=== PATIENT | male | born 1965 | race Caucasian/White ===

== ENCOUNTER 2016-05-14 15:15 | Emergency (ER) | payer MEDICARE, OTHER ==
--- NOTE | 2016-05-14 15:31 | ED.REPORT ---
HPI-Chest Pain 40 and Over Date of Service May 14, 2016 ED Provider: Mike Garcia DO 50 year old male with a history of costochondritis, CRPS of the extremities, anxiety, and PTSD presents to the ER accompanied by his and daughters complaining of chest pain rated 9/10 in severity that radiates into his left arm , and shortness of breath onset around 14:50 today. Chest pain is described as "being struck in the chest with a sledgehammer". Associated symptoms include bilateral upper extremity pain that feels as though they are "being crushed off ", bilateral lower extremity pain, and "cold, burning" sensation in his feet. Symptoms are different to prior episodes of costochondritis. Nursing Notes Stated Complaint: CHEST PAIN, LEFT ARM PAIN, SHORTNESS OF BREATH Nursing Notes Reviewed: Yes Allergies: Coded Allergies: ibuprofen (Verified Allergy, Unknown, 05/14/16) tramadol (Verified Allergy, Unknown, 05/14/16) General Time Seen by MD: 15:30 Chief Complaint Chest pain Hx Obtained From: Patient Arrived By: Walk-in Sudden in Onset?: Yes Onset Occurred: 1 - 4 hours ago (14:50) Symptom Duration: Since onset Location: : Substernal Quality: Painful Radiation: : Arm left Migration/Movement: Reports: None Severity: Current: Moderate Severity: Maximum: Moderate Associated with: Reports: Shortness of Breath Context Related History: Reports: Anxiety disorder, Costochondritis Past Medical History Past Medical History Costochondritis CRPS [place] Restless leg syndrome Anxiety PTSD Denies: Asthma, COPD Past Surgical History Sternoplasty as a child Smoking History Unknown if Ever Smoker Social History Other Social History: Good social support, Ambulatory Status Independent Review of Systems Constitutional: Denies: Chills, Fever Respiratory: Reports: Shortness of breath, Denies: Non-productive cough Cardiovascular: Reports: Chest pain GI: Denies: Abdominal pain, Nausea, Vomiting Musculoskeletal: Reports: Extremity pain (Arms and Legs, bilaterally), Denies: Back pain, Joint pain, Neck pain Skin: Denies Diaphoresis Neurologic: Denies: Headache Complete sys rev & neg: except as marked. Physical Exam Initial Vital Signs Initial VS: Reviewed Head / Eyes: Atraumatic, Normocephalic Neck: Supple, Non-tender, Full range of motion Extremities: Vascular intact, Neuro intact, No swelling, No tenderness Skin: Warm, Dry, No cyanosis Neurologic: Alert, Oriented, Nonfocal General/Constitutional: Awake, Alert, Well developed, Well nourished Appearance / Presentation: Positive: In pain, Uncomfortable Respiratory / Chest: Breath sounds NL, Breath sounds = bilat, No respiratory distress, No rales, No rhonchi, No wheezing, No stridor, No chest tenderness Horizontal scar beneath the breast Cardiovascular: Heart rate NL, Regular rhythm, Heart sounds NL, No murmurs, Peripheral circulation NL, Pulses = bilaterally, No gross BP differential Abdomen: Soft, Non-tender, No guarding, No rebound, No distention Interpretation & Diagnostics Lab Results Interpretation Test 05/14/16 15:50 White Blood Count 7.5th/mm3 (3.8-10.1) Red Blood Count 5.06mil/mm3 (4.40-5.80) Hemoglobin 16.0g/dL (13.8-17.2) Hematocrit 45.5% (41.0-50.0) Mean Corpuscular Volume 89.9fL (81-100) Mean Corpuscular Hemoglobin 31.6pg (27.0-35.0) Mean Corpuscular Hemoglobin Concent 35.2% (32.0-37.0) Red Cell Distribution Width 11.7% (12.3-15.4) Platelet Count 221bil/L (150-400) Neutrophils (%) (Auto) 50.2% (40-74) Lymphocytes (%) (Auto) 37.5% (14-46) Monocytes (%) (Auto) 9.3% (4-12) Eosinophils (%) (Auto) 2.5% (0-5) Basophils (%) (Auto) 0.4% (0-3) Prothrombin Time 9.6sec (8.1-12.5) Prothromb Time International Ratio 0.90ratio Activated Partial Thromboplast Time 28.0sec (22.8-33.0) Sodium Level 136mEq/L (134-144) Potassium Level 3.8mEq/L (3.5-5.2) Chloride Level 98mEq/L (97-108) Carbon Dioxide Level 24mmol/L (18-29) Blood Urea Nitrogen 14mg/dL (6-24) Creatinine 0.81mg/dL (0.76-1.27) Estimat Glomerular Filtration Rate 108mL/min (>59) Glucose Level 149mg/dL (60-99) Calcium Level 9.7mg/dL (8.5-10.1) Magnesium Level 2.2mg/dL (1.6-2.6) Total Bilirubin 0.6mg/dL (0.0-1.2) Aspartate Amino Transf (AST/SGOT) 21U/L (0-50) Alanine Aminotransferase (ALT/SGPT) 22U/L (0-44) Alkaline Phosphatase 67U/L (25-150) Troponin T < 0.010ug/L (0.0-0.011) Total Protein 7.3g/dL (6.4-8.4) Albumin 4.5g/dL (3.4-5.0) ECG Interpretation ECG Interpretation: Interference with baseline, difficult to interpret Sinus rhythm. No obvious ST changes visible. Leads adjusted multiple times but unable to obtain better picture. Time: 15:45 Interpreted by: ED physician X-Ray Chest Interpretation Chest Xray Interpretation: IMPRESSION: Focal opacity in the right lower lobe which could represent atelectasis or pneumonia. Recommend followup imaging to resolution to exclude underlying mass. Dictated by: Linda Carr MD, PhD on 05/14/2016 at 17:01 Approved by: Linda Carr MD, PhD on 05/14/2016 at 17:02 View: AP & lat Interpretation / Wet Read by: Interpret - Radiologist Re-Eval/Medical Decision Med Decision/Clinical Course 50-year-old male with a history of CPR S, recurrent chest pain related to "cartilage inflammation from a surgery to repair pectus excavatum when he was a child", and PTSD presents with his usual chest pain and quite a bit of anxiety from him and his family. Workup was conducted and revealed no acute coronary syndrome which was quite reassuring to the patient and his family. I have recommended that if these sensations persist it would be reasonable for him to have a stress test and follow-up with his primary care provider to evaluate this further. His chest x-ray was somewhat abnormal and I discussed this with the patient, but I suspect that the findings are consistent with the postsurgical changes in his chest and that we just have no previous film for comparison here. I asked him to follow up and discuss this with his primary care provider also. Source of Hx: Old records Time of Eval: 18:19 Patient Status: Condition improved, Pain improved Re-Evaluation/Progress Note: Chest pain is resolved. Extremity pain persists, but is at baseline per patient. Discussed lab and radiology results and plan to discharge. Patient is amenable to the plan. Return precautions given. All other questions addressed. Counseled Regarding: Diagnosis, Lab results, Need for follow-up, When/why to return to ED Discharge & Departure Primary Impression: Chest pain Chest pain type: unspecified Qualified Code: R07.9 - Chest pain, unspecified Disposition: Home Discharge Condition All VS Reviewed: Yes Condition: Stable Patient Instructions: Chest Pain (ED) Additional Instructions: Your workup today was reassuring. I do not believe that there is any dangerous cause for your symptoms at this time. Your labs and x-ray results were all normal. Take your pain medications as prescribed. Do not consume alcohol or drive while taking narcotic pain medication. Follow up with your primary care provider this week. Discuss having a stress test with your primary care provider. Return to the ER if you develop any worsening chest pain, radiation of pain into your arms, shoulders or neck, nausea, shortness of breath, sweating , or other concerning symptoms. Referrals: Damir Rodriguez MD (PCP) Jose Ramon Attestation Portions of this note were transcribed by Devonte Shane. I, Dr. Garcia personally performed the history, physical exam and medical decision-making; I reviewed and confirmed the accuracy of the information in the transcribed note. Signed by: Jose Ramon Shaikh, 05/14/2016 and 18:43 copies to: Damir Rodriguez MD, Gary R DO May 14, 2016 15:30 DEVONTE SHANE May 14, 2016 15:34
[2016-05-14 15:35] VITALS: BP 143/90; PULSE 86; RESP 20; O2SAT 96
[2016-05-14 15:53] LABS: BASOPHILS % (AUTO) 0.4 % (0-3); EOSINOPHILS % (AUTO) 2.5 % (0-5); MONOCYTES % (AUTO) 9.3 % (4-12); Mean Corpuscular Hemoglobin 31.6 pg (27.0-35.0); Mean Corpuscular Volume 89.9 fL (81-100); NEUTROPHILS % (AUTO) 50.2 % (40-74); Platelet Count 221 bil/L (150-400)
[2016-05-14 16:11] LABS: INR 0.9 ratio
[2016-05-14 16:27] LABS: TROPONIN T < 0.010 ug/L (0.0-0.011)
[2016-05-14 16:29] LABS: Magnesium 2.2 mg/dL (1.6-2.6)
--- NOTE | 2016-05-14 17:04 | DRSVH ---
PROCEDURE: X-RAY CHEST, TWO VIEWS ([id number]) INDICATIONS: chest pain TECHNIQUE: 2 views of the chest were acquired. COMPARISON: None. FINDINGS: Surgical changes and devices: Cervical spine neurostimulator Lungs and pleura: No pleural effusions or pneumothorax. Focal opacity noted in the mesial anterior a spect of the right lower lobe. Mediastinum: Mediastinal contours are normal. Heart size is normal. Bones and chest wall: Pectus excavatum deformity is noted. No suspicious bony abnormalities. Soft tissues appear unremarkable. IMPRESSION: Focal opacity in the right lower lobe which could represent atelectasis or pneumonia. R ecommend followup imaging to resolution to exclude underlying mass. Dictated by: Linda Carr MD, PhD on 05/14/2016 at 17:01 Approved by: Linda Carr MD, PhD on 05/14/2016 at 17:02
[2016-05-14 19:06] VITALS: BP 144/87; PULSE 81; RESP 16; O2SAT 97
== END 2016-05-14 19:07 | disposition home or self-care (01) ==
LOC: SED 15:15
DX: R07.9 Chest pain, unspecified (principal); R06.02 Shortness of breath; Z88.6 Allergy status to analgesic agent; Z88.8 Allergy status to other drugs, medicaments and biological substances; I25.2 Old myocardial infarction
CPT/HCPCS: 36415; 71020; 80053; 83735; 84484; 85025; 85610; 85730; 93005; 96374; 99285; J2060